=== PATIENT | female | born 1980 | race Caucasian/White ===

== ENCOUNTER 2021-04-25 09:39 | Observation (INO) ==
[2021-04-25] MEDS ORDERED: ACETAMINOPHEN 325 MG TABLET PO PRN (10:22)
[2021-04-25] MEDS ORDERED: PROMETHAZINE 25 MG/1 ML VIAL IM PRN (10:22)
[2021-04-25] MEDS ORDERED: ONDANSETRON 4 MG/2 ML VIAL IV PRN (10:22)
[2021-04-25] MEDS ORDERED: ENOXAPARIN 30 MG/0.3 ML SYRINGE SUBCUT SCH (10:30)
[2021-04-25] MEDS: SODIUM CHLORIDE 0.9% 1,000 ML IV SCH (11:30)
[2021-04-25 11:42] LABS: Basophils % 0.3 % (0.0-0.8); Eosinophils # 0.6 10*3/uL (0.0-0.87); Eosinophils % 4.2 % (0.00-10.9); Hematocrit 35.1 VOL% (35.7-47.0); Hemoglobin 11.2 GM/DL (12.0-16.0); Immature Granulocytes % 0.6 %; Immature Granulocytes Absolute 0.08 #; Lymphocytes # 0.9 10*3/uL (1.4-4.0); Lymphocytes % 6.8 % (21.3-54.2); Mean Corpuscular HGB Conc 31.9 GM/DL (32-36); Mean Corpuscular Volume 82.2 FL (87-102); Mean Platelet Volume 9.1 FL (9.6-12.0); Monocytes % 5.4 % (1.7-12.7); Neutrophils % 82.7 % (38.7-73.9); Platelet Count 259 T/CUMM (130-400); Red Blood Count 4.27 MC/CUMM (3.8-5.5); Red Cell Distribution Width 14.2 % (9.3-17.3); White Blood Count 13.6 T/CUMM (4-12)
[2021-04-25 12:08] LABS: Bilirubin,Total 0.9 MG/DL (0.20-1.00); Calcium 9.1 MG/DL (8.5-10.1); Potassium 3.1 MMOL/L (3.5-5.1); Total Protein 8.6 G/DL (6.4-8.2)
[2021-04-25 12:15] LABS: Free T4 (Free Thyroxine) 1.22 NG/DL (0.76-1.46); Thyroid Stimulating Hormone 6.04 uIU/ml (0.358-3.74)
[2021-04-25 13:52] LABS: Bacteria,Urine Occasional /HPF (Few); Bilirubin,Urine Negative (Negative); Blood, Urine Negative (Negative); Glucose,Urine (UA) Negative (Negative); Hyaline Casts,Urine 43 /LPF (0-3); Ketones,Urine Negative (Negative); Mucus,Urine Occasional /LPF (Occasional); Nitrite,Urine Negative (Negative); Protein,Urine 30 MG/DL; Squamous Epithelial Cell,Urine Occasional /HPF (0-10); Urine Appearance CLEAR (Clear); Urine Color Amber (Yellow); Urine Specific Gravity 1.012 (1.001-1.035)
[2021-04-25] MEDS: POTASSIUM CHLORIDE 20 MEQ TABLET PO PRN (16:59)
[2021-04-25] MEDS: PANTOPRAZOLE 40 MG VIAL IV SCH (17:04)
[2021-04-25 21:16] LABS: Barbiturates Screen,Urine Negative (Negative); Benzodiazepines Screen,Urine Negative (Negative); Cannabinoid Screen,Urine Negative (Negative); Opiate Screen,Urine Negative (Negative); Phencyclidine Screen,Urine Negative (Negative)
[2021-04-26] MEDS: SODIUM CHLORIDE 0.9% 1,000 ML IV SCH ×5 (03:51→22:05)
[2021-04-26] MEDS ORDERED: LACTATED RINGERS 1,000 ML IV SCH (08:00)
[2021-04-26 08:15] LABS: Calcium 8.1 MG/DL (8.5-10.1); Osmolality,Calculated 274.4 MOS/KG (273-304); Potassium 3.2 MMOL/L (3.5-5.1)
[2021-04-26] MEDS ORDERED: SEVOFLURANE 1 UNIT/15 MINUTE INH ONE ×2 (09:19→09:40)
[2021-04-26] MEDS ORDERED: SUCCINYLCHOLINE 200 MG/10 ML VIAL ONE (09:19)
[2021-04-26] MEDS ORDERED: propofoL 200 MG/20 ML VIAL IV ONE (09:19)
[2021-04-26] MEDS ORDERED: LIDOCAINE 2% 5 ML VIAL ONE (09:19)
[2021-04-26] MEDS ORDERED: ONDANSETRON 4 MG/2 ML VIAL ONE (09:19)
[2021-04-26] MEDS ORDERED: DEXAMETHASONE 4 MG/1 ML VIAL ONE (09:22)
[2021-04-26] MEDS: POTASSIUM CHLORIDE 20 MEQ TABLET PO PRN ×2 (11:17→15:50)
[2021-04-26] MEDS: PANTOPRAZOLE 40 MG VIAL IV SCH (11:33)
[2021-04-26] MEDS ORDERED: DEXTROMETHORPHAN ER 6 MG/ML 90 ML/BOTTLE PO PRN (13:16)
[2021-04-26] MEDS ORDERED: POTASSIUM CHLORIDE 20 MEQ TABLET PO ONE (16:18)
[2021-04-26] MEDS ORDERED: INDOCYANINE GREEN 25 MG VIAL IV ONE (16:45)
[2021-04-26] MEDS: PIPERACILLIN/TAZOBACTAM 3,375 MG in SODIUM CHLORIDE 0.9% 100 ML IV SCH (19:06)
[2021-04-27] MEDS: PIPERACILLIN/TAZOBACTAM 3,375 MG in SODIUM CHLORIDE 0.9% 100 ML IV SCH ×3 (02:00→17:29)
[2021-04-27 05:08] LABS: Basophils % 0.4 % (0.0-0.8); Eosinophils % 9.4 % (0.00-10.9); Hematocrit 29.1 VOL% (35.7-47.0); Hemoglobin 9.3 GM/DL (12.0-16.0); Immature Granulocytes % 0.7 %; Immature Granulocytes Absolute 0.07 #; Lymphocytes # 1.1 10*3/uL (1.4-4.0); Lymphocytes % 11.3 % (21.3-54.2); Mean Corpuscular Volume 83.1 FL (87-102); Mean Platelet Volume 9.4 FL (9.6-12.0); Monocytes % 5.9 % (1.7-12.7); Neutrophils % 72.3 % (38.7-73.9); Platelet Count 208 T/CUMM (130-400); Red Cell Distribution Width 14.3 % (9.3-17.3); White Blood Count 10.1 T/CUMM (4-12)
[2021-04-27 05:35] LABS: Albumin 2.4 G/DL (3.4-5.0); Bilirubin,Total 0.7 MG/DL (0.20-1.00); Osmolality,Calculated 278.1 MOS/KG (273-304); Potassium 3.4 MMOL/L (3.5-5.1); Total Protein 6.7 G/DL (6.4-8.2)
[2021-04-27] MEDS: PANTOPRAZOLE 40 MG VIAL IV SCH (08:24)
[2021-04-27] MEDS ORDERED: HYDROmorphone 2 MG/1 ML VIAL IV PRN ×3 (09:47→14:41)
[2021-04-27] MEDS ORDERED: LIDOCAINE 2% 5 ML VIAL ONE ×2 (12:33→13:51)
[2021-04-27] MEDS ORDERED: fentaNYL 100 MCG/2 ML VIAL ONE (12:33)
[2021-04-27] MEDS ORDERED: propofoL 200 MG/20 ML VIAL IV ONE (12:33)
[2021-04-27] MEDS ORDERED: SEVOFLURANE 1 UNIT/15 MINUTE INH ONE ×2 (12:33→14:44)
[2021-04-27] MEDS ORDERED: ROCURONIUM 50 MG/5 ML VIAL IV ONE (12:33)
[2021-04-27] MEDS ORDERED: BUPIVACAINE MPF 0.25% 30 ML VIAL ONE (12:50)
[2021-04-27] MEDS ORDERED: TISSUE ADHESIVE 1 EACH APPLICATOR TOP ONE (12:51)
[2021-04-27] MEDS ORDERED: LIDOCAINE 1%/EPI INJ 20 ML VIAL ONE (12:51)
[2021-04-27] MEDS ORDERED: MIDAZOLAM 2 MG/2 ML VIAL ONE (13:24)
[2021-04-27] MEDS ORDERED: ACETAMINOPHEN INJ 1,000 MG/100 ML VIAL IV ONE (13:40)
[2021-04-27] MEDS ORDERED: PHENYLEPHRINE 1 MG/10 ML SYRINGE IV ONE (13:40)
[2021-04-27] MEDS ORDERED: GLYCOPYRROLATE 0.4 MG/2 ML VIAL ONE (13:50)
[2021-04-27] MEDS ORDERED: ONDANSETRON 4 MG/2 ML VIAL ONE (13:50)
[2021-04-27] MEDS ORDERED: NEOSTIGMINE 10 MG/10 ML VIAL ONE (13:51)
[2021-04-27] MEDS ORDERED: SUGAMMADEX 200 MG/2 ML VIAL IV ONE (14:22)
[2021-04-27] MEDS ORDERED: ONDANSETRON 4 MG/2 ML VIAL IV PRN (14:41)
[2021-04-27] MEDS: SODIUM CHLORIDE 0.9% 1,000 ML IV SCH (15:30)
[2021-04-28] MEDS: PIPERACILLIN/TAZOBACTAM 3,375 MG in SODIUM CHLORIDE 0.9% 100 ML IV SCH (02:10)
[2021-04-28 08:33] VITALS: BP 126/85
== END 2021-04-28 09:50 | disposition home or self-care (01) ==
LOC: N.5E
PROVIDERS: ADMIT Family Medicine; ATTEND Family Medicine